=== PATIENT | female | born 1990 | race Caucasian/White ===

== ENCOUNTER 2017-08-28 13:23 | Emergency (ER) | payer OTHER ==
[~2017-08-28] VITALS: Ht 162.6 cm; Wt 70.9 kg
[2017-08-28] MEDS ORDERED: PEN-VEE K,VEET500 MG PO (15:13)
[2017-08-28] MEDS ORDERED: TYLENOL WITH C1 EACH PO (15:13)
[2017-08-28 15:28] VITALS: BP 124/68
== END 2017-08-28 15:29 | disposition home or self-care (01) ==
LOC: EME 13:23
DX: K08.89 Other specified disorders of teeth and supporting structures (principal); K03.81 Cracked tooth; H92.02 Otalgia, left ear; F17.200 Nicotine dependence, unspecified, uncomplicated
CPT/HCPCS: 99281; 99284